=== PATIENT | male | born 1990 | race Caucasian/White ===

== ENCOUNTER 2022-08-07 10:24 | Emergency (ER) | payer OTHER, MEDICAID, SELFPAY ==
[2022-08-07 10:28] VITALS: BP 113/72; PULSE 54; RESP 14; TEMP 37; O2SAT 99; BMI 22.4
[2022-08-07 11:38] VITALS: BP 119/73; PULSE 54; RESP 14; O2SAT 96
--- NOTE | 2022-08-07 11:49 | ED.SKABFB ---
HPI - Skin/Abscess/Foreign Bdy General Chief complaint: Skin/Abscess/Foreign Body Stated complaint: Sore on right leg turning green Time Seen by Provider: 08/07/22 11:40 Source: patient Mode of arrival: Ambulatory Limitations: no limitations History of Present Illness HPI narrative: Luciano is a 31-year-old man with no health problems who comes to the ER today with a rash on the right cat anteriorly. He does not have any other signs or symptoms of illness such as fever, chest pain, sweats, chills, myalgias. He said initially it itched quite a bit and he scratched a lot and then it has been spreading since then. It is painful. Related Data Home Medications Medication Instructions Recorded Confirmed CA PANTOTHENATE/FOLIC ACID/VIT 1 tab PO QDAY ##0 07/13/13 (MULTIVITAMIN) Previous Rx's Medication Instructions Recorded sulfamethoxazole 800 1 tab PO BID 10 days #20 tabs 08/07/22 mg-trimethoprim 160 mg tablet (Bactrim DS) Allergies Allergy/AdvReac Type Severity Reaction Status Date / Time No Known Drug Allergies Allergy Verified 08/07/22 10:31 Review of Systems Review of Systems Narrative: Complete review of systems is otherwise negative. Patient History Social History Smoking Status: Unknown if ever smoked Smoking Status: Unknown if ever smoked alcohol intake frequency: holidays/special occasions only Substance Use Type: marijuana Exam Narrative Exam Narrative: GENERAL: Alert, cooperative and in no distress. HEAD: Atraumatic. Normocephalic. EYES: Sclera are clear without icterus. Extraocular movements are full. ENT: No rhinorrhea. NECK: Supple. Full range of motion. CARDIOVASCULAR: Normal rate and rhythm without murmur gallop or rub. RESPIRATORY: Clear to auscultation. Breath sounds equal bilaterally. No wheezes, rales, or rhonchi. GASTROINTESTINAL: Abdomen soft, non-tender, nondistended. EXTREMITIES: No edema, full range of motion. No obvious trauma. BACK: Normal inspection, no CVA tenderness. NEURO: Nonfocal examination, normal speech, normal gait. SKIN: No rash or erythema of visible areas, erythematous papular pustular rash on the right anterior cat the entire area that is affected can be circumscribed into a 10 cm diameter area. There are some vesicles that are pustules actually. PSYCH: Normally oriented. Normal range of affect. Appropriate behavior Initial Vital Signs Initial Vital Signs: Vital Signs Temperature 98.6 F 08/07/22 10:28 Pulse Rate 54 L 08/07/22 10:28 Respiratory Rate 14 08/07/22 10:28 Blood Pressure 113/72 08/07/22 10:28 Pulse Oximetry 99 08/07/22 10:28 Oxygen Delivery Method 08/07/22 10:28 Course Vital Signs Vital signs: Vital Signs - 8 hr 08/07/22 10:28 08/07/22 11:38 Temperature 98.6 F Pulse Rate 54 L 54 L Respiratory Rate 14 14 Blood Pressure 113/72 119/73 Pulse Oximetry 99 96 Oxygen Delivery Method Room Air MDM - Skin/Abscess/Foreign Bdy Medical Records Medical records narrative: When I 1st laid eyes on this I thought it was probably a shingles outbreak but after reviewing his history and looking more closely I think it is probably a MRSA infection. Will treat for same with instruction to cover the wound and follow-up if not improving Discharge Plan Departure Patient Disposition: Home Clinical Impression: Cellulitis Instructions: DI for Cellulitis -- Adult Activity Restrictions/Additional Instructions: I think you have a MRSA skin infection. This should get better with oral antibiotics which I have prescribed. Keep the wound covered as long as those lesions are open. Follow-up right away if you have fever or repeated vomiting. If things do not seem to be getting better, you should follow-up with your doctor in a few days. Prescriptions: New sulfamethoxazole-trimethoprim [Bactrim DS] 800-160 mg tablet 1 tab PO BID 10 Days Qty: 20 0RF No Action CA PANTOTHENATE/FOLIC ACID/VIT (MULTIVITAMIN) 1 tab PO QDAY Qty: 0
[2022-08-07 12:02] VITALS: BP 109/79; PULSE 71; RESP 16; O2SAT 100
== END 2022-08-07 12:02 | disposition home or self-care (01) ==
PROVIDERS: Emergency Provider Family Medicine Addiction Medicine; Family Provider Pediatrics
DX: L03.115 Cellulitis of right lower limb (principal)
CPT/HCPCS: 99281

== ENCOUNTER → 2023-11-26 10:13 | Outpatient (CLI) | payer OTHER, MEDICAID, SELFPAY ==
--- NOTE | 2023-11-26 | DI.RAD.S_ITS ---
PROCEDURE: XR ABDOMEN MIN 2V INDICATIONS: urinary retention w/incomplete bladder emptying, constipation TECHNIQUE: 2 views of the abdomen were acquired. COMPARISON: None. FINDINGS: Surgical changes and devices: None. Bowel: No pneumoperitoneum. The bowel gas pattern is normal. Normal colonic stool burden. Soft tissues: No masses; visualized solid organ contours appear normal in size. No suspicious abdominal calcifications. Bones: No suspicious bony abnormalities. IMPRESSION: Non-obstructive bowel gas pattern. Normal colonic stool burden. Dictated by: Satnam Jimenez M.D. on 11/26/2023 at 12:42 Approved by: Satnam Jimenez M.D. on 11/26/2023 at 12:43
== END ==
PROVIDERS: Family Provider Pediatrics; PCP Registered Nurse; Referring Provider Registered Nurse; Visit Provider Registered Nurse
DX: R33.9 Retention of urine, unspecified (principal); K59.00 Constipation, unspecified
CPT/HCPCS: 74019